=== PATIENT | female | born 1945 | race Caucasian/White ===

== ENCOUNTER 2016-08-10 13:04 | Inpatient (IN) | payer MEDICARE ==
[2016-08-10] MEDS ORDERED: SODIUM CHLORIDE 0.9% 500 ML IV STA (13:22)
[2016-08-10 13:36] LABS: Basophils % (A) 0 %; CH 29.6; CHCM 31.1; Eosinophils % (A) 0 %; HDW 3.13; Hypochromasia Moderate; Luc # (Auto) 0.04; Luc % (Auto) 1; Lymphocytes # (A) 0.4 k/uL (1.0-4.8); Lymphocytes % (A) 9 %; MCH 29.7 pg (25.0-35.0); MCHC 30.9 g/dL (31.0-37.0); MCV 96.2 fL (80.0-100.0); Monocytes # (A) 0.2 k/uL (0-1.0); Monocytes % (A) 4 %; Neutrophils # (A) 4.2 k/uL (1.3-7.7); Neutrophils % (A) 86 %; RBC 1.59 m/uL (3.80-5.40); RDW 15.9 % (11.5-15.5); WBC 4.9 k/uL (3.8-10.6); WBC (Perox) 5.07
[2016-08-10] MEDS ORDERED: ONDANSETRON 4 MG/2 ML VIAL IVP STA ×2 (13:45→16:15)
[2016-08-10 13:46] LABS: Calcium 6.8 mg/dL (8.4-10.2); Magnesium 1.7 mg/dL (1.6-2.3); Potassium 5.3 mmol/L (3.5-5.1); Total Bilirubin 0.4 mg/dL (0.2-1.3); Total Protein 5.9 g/dL (6.3-8.2)
[2016-08-10 13:50] LABS: HCT 15.3 % (34.0-46.0); HGB 4.7 gm/dL (11.4-16.0)
[2016-08-10] MEDS ORDERED: MORPHINE SULFATE 4 MG/ML SYRINGE IVP STA (13:52)
[2016-08-10 13:53] LABS: Appearance,Urine Clear (Clear); Bacteria,Urine Rare /hpf; Bilirubin,Urine Negative (Negative); Glucose,Urine (UA) Trace (Negative); Ketones,Urine Negative (Negative); Leukocyte Esterase,Urine Negative (Negative); Nitrite,Urine Negative (Negative); Particle Count 183; Protein,Urine 2+ (Negative); RBC,Urine <1 /hpf (0-5); Specific Gravity,Urine 1.005 (1.001-1.035); Squamous Epithelial Cell,Urine <1 /hpf (0-4); UA Billing (MACRO vs. MICRO) MICRO; Urobilinogen,Urine <2.0 mg/dL (<2.0); WBC,Urine 1 /hpf (0-5)
[2016-08-10 14:00] LABS: Phosphorous 8.8 mg/dL (2.5-4.5)
--- NOTE | 2016-08-10 14:25 | XR ---
EXAMINATION TYPE: XR KUB DATE OF EXAM: 08/10/2016 2:07 PM CLINICAL HISTORY: Abdominal pain and vomiting TECHNIQUE: 2 supine KUB images of the abdomen are obtained COMPARISON: None. FINDINGS: There is some paucity of bowel gas. Gas is seen in nondistended stomach. Gas is seen scatte red throughout nondistended small and large bowel loops including rectum. Some vascular calcification mid to lower abdomen and pelvis is present. There are few scattered pelvic phleboliths. Lung bases a re not included. Visualized osseous structures show moderate axial joint space loss in both hips. IMPRESSION: Overall nonspecific favor nonobstructive bowel gas pattern.
--- NOTE | 2016-08-10 15:18 | ED ---
Abdominal Pain HPI <Jose Lewis - Last Filed: 08/10/16 16:24> - General Source: patient, EMS, RN notes reviewed Mode of arrival: EMS Limitations: no limitations <Kole Evangelista - Last Filed: 08/10/16 16:49> - General Chief Complaint: Abdominal Pain Stated Complaint: NAUSEA, VOMITING Time Seen by Provider: 08/10/16 13:21 - History of Present Illness Initial Comments: This is a 70-year-old female presents emergency department via EMS for chief complaint of abdominal pain. Patient states she's been having a tearing feeling of her insides. She states this has been waxing and waning. She states that she is very sick and she has chronic renal failure. Patient states that she wants to be placed in hospice does not want any treatment. Patient states that she has discussed in the past with her primary care physician Dr. joe about water hospice. Patient states that she declined last time. Patient states at this point she cannot tolerate this anymore. Patient denies any chest pain or shortness of breath. Patient states she is very fatigued and does not feel well. Patient denies any dysuria or hematuria. (Kole Evangelista) - Related Data Home Medications Medication Instructions Recorded Confirmed Levothyroxine Sodium [Synthroid] 50 mcg PO DAILY 06/11/15 08/10/16 ALPRAZolam [Xanax] 1 mg PO DAILY PRN 08/10/16 08/10/16 Previous Rx's Medication Instructions Recorded Ondansetron Odt [Zofran Odt] 4 mg PO Q8HR PRN #10 tab 08/10/16 Promethazine [Phenergan] 25 mg PO Q6HR #10 tablet 08/10/16 oxyCODONE-APAP 5-325MG [Percocet 1 tab PO Q6HR PRN #10 tab 08/10/16 5-325 mg] Allergies Allergy/AdvReac Type Severity Reaction Status Date / Time lithium [[place]] Allergy KIDNEY Verified 08/10/16 13:17 FAILURE paroxetine HCl [From Paxil] Allergy Rash/Hives Verified 08/10/16 13:17 Review of Systems ROS Other: All systems not noted in ROS Statement are negative. <Jose Lewis - Last Filed: 08/10/16 16:24> ROS Other: All systems not noted in ROS Statement are negative. <Kole Evangelista - Last Filed: 08/10/16 16:49> ROS Statement: Those systems with pertinent positive or pertinent negative responses have been documented in the HPI. Past Medical History Past Medical History: Hypertension, Renal Disease, Thyroid Disorder Additional Past Medical History / Comment(s): "low blood sugar problems" History of Any Multi-Drug Resistant Organisms: None Reported Additional Past Surgical History / Comment(s): abdominal cyst removed Past Anesthesia/Blood Transfusion Reactions: No Reported Reaction Past Psychological History: No Psychological Hx Reported Smoking Status: Former smoker Past Alcohol Use History: None Reported Past Drug Use History: None Reported - Past Family History Mother Family Medical History: Asthma Additional Family Medical History / Comment(s): cholecystectomy Father Family Medical History: Cancer Additional Family Medical History / Comment(s): colon CA <Kole Evangelista - Last Filed: 08/10/16 16:49> General Exam Limitations: no limitations General appearance: alert, in no apparent distress Head exam: Present: atraumatic, normocephalic, normal inspection Eye exam: Present: normal appearance, PERRL, EOMI. Absent: scleral icterus, conjunctival injection, periorbital swelling Neck exam: Present: normal inspection. Absent: tenderness, meningismus, lymphadenopathy Respiratory exam: Present: normal lung sounds bilaterally. Absent: respiratory distress, wheezes, rales, rhonchi, stridor Cardiovascular Exam: Present: regular rate, normal rhythm, normal heart sounds. Absent: systolic murmur, diastolic murmur, rubs, gallop, clicks GI/Abdominal exam: Present: soft, tenderness (Moderate diffuse abdominal tenderness), normal bowel sounds. Absent: distended, guarding, rebound, rigid Back exam: Absent: CVA tenderness (R), CVA tenderness (L) Neurological exam: Present: alert, oriented X3, CN II-XII intact Skin exam: Present: warm, dry, intact, normal color. Absent: rash <Kole Evangelista - Last Filed: 08/10/16 16:49> Course <Jose Lewis - Last Filed: 08/10/16 16:24> <Kole Evangelista - Last Filed: 08/10/16 16:49> Vital Signs 08/10/16 13:14 Temperature 97.0 F L Pulse Rate 90 Respiratory 16 Rate Blood Pressure 195/86 O2 Sat by Pulse 98 Oximetry - Reevaluation(s) Reevaluation #1: 08/10/16 15:17 Patient was updated on lab results as I received him including critical hemoglobin and creatinine. Patient refuses blood transfusion or dialysis. Patient states she does not want any treatment. Patient is requesting hospice. I did contact social work, Umesh recommended that we contact [facility] though the patient is requesting blood at this time and will proceed with bladder hospice. She does state that we needed physician order and we are attempting to contact Dr. Madrigal Patient given pain relief emergency Department before the morphine. We will attempt to contact [facility] hosp[facility] ourselves while waiting for physician order. (Kole Evangelista) Medical Decision Making - Lab Data Result diagrams: 08/10/16 13:20 08/10/16 13:20 <Jose Lewis - Last Filed: 08/10/16 16:24> - Lab Data Result diagrams: 08/10/16 13:20 08/10/16 13:20 <Kole Evangelista - Last Filed: 08/10/16 16:49> - Medical Decision Making Patient reevaluated by myself, Dr. Lewis. Patient does not want any further medical care and only is seeking pain relief. Patient is requesting to be put on hospice. Patient has previously been on hospice. [facility] was contacted per patient request. Dr. Madrigal was also notified who will call [place] at [phone] (Jose Lewis) I did discuss with [facility] that Dr. Madrigal did contact him have orders for hospice care. Nurse will follow-up in the morning. Patient will not be seen by them tonight and will require pain control. I will write her pain management, antinausea medication at home for tonight and she'll be evaluated at home tomorrow. Patient and family agreed to plan. Patient again declines all medical treatment at this time. (Kole Evangelista) - Lab Data Lab Results 08/10/16 08/10/16 08/10/16 Range/Units 13:20 13:20 13:20 WBC 4.9 (3.8-10.6) k/uL RBC 1.59 L (3.80-5.40) m/uL Hgb 4.7 L* (11.4-16.0) gm/dL Hct 15.3 L* (34.0-46.0) % MCV 96.2 (80.0-100.0) fL MCH 29.7 (25.0-35.0) pg MCHC 30.9 L (31.0-37.0) g/dL RDW 15.9 H (11.5-15.5) % Plt Count 166 (150-450) k/uL Neutrophils % 86 % Lymphocytes % 9 % Monocytes % 4 % Eosinophils % 0 % Basophils % 0 % Neutrophils # 4.2 (1.3-7.7) k/uL Lymphocytes # 0.4 L (1.0-4.8) k/uL Monocytes # 0.2 (0-1.0) k/uL Eosinophils # 0.0 (0-0.7) k/uL Basophils # 0.0 (0-0.2) k/uL Hypochromasia Moderate Sodium 140 (137-145) mmol/L Potassium 5.3 H (3.5-5.1) mmol/L Chloride 113 H (98-107) mmol/L Carbon Dioxide 8 L* (22-30) mmol/L Anion Gap 19 mmol/L BUN 168 H* (7-17) mg/dL Creatinine 13.24 H* (0.52-1.04) mg/dL Est GFR (MDRD) Af Amer 3 (>60 ml/min/1.73 sqM) Est GFR (MDRD) Non-Af 3 (>60 ml/min/1.73 sqM) Glucose 116 H (74-99) mg/dL Calcium 6.8 L (8.4-10.2) mg/dL Phosphorus 8.8 H* (2.5-4.5) mg/dL Magnesium 1.7 (1.6-2.3) mg/dL Total Bilirubin 0.4 (0.2-1.3) mg/dL AST 18 (14-36) U/L ALT 43 (9-52) U/L Alkaline Phosphatase 146 H (38-126) U/L Total Protein 5.9 L (6.3-8.2) g/dL Albumin 3.6 (3.5-5.0) g/dL Amylase 101 (30-110) U/L Lipase 508 H (23-300) U/L Urine Color Urine Appearance (Clear) Urine pH (5.0-8.0) Ur Specific [place] (1.001-1.035) Urine Protein (Negative) Urine Glucose (UA) (Negative) Urine Ketones (Negative) Urine Blood (Negative) Urine Nitrite (Negative) Urine Bilirubin (Negative) Urine Urobilinogen (<2.0) mg/dL Ur Leukocyte Esterase (Negative) Urine RBC (0-5) /hpf Urine WBC (0-5) /hpf Ur Squamous Epith Cells (0-4) /hpf Urine Bacteria (None) /hpf Blood Type A Positive Blood Type Recheck No Antibody Screen NEGATIVE Spec Expiration Date 08/13/2016 - 231908/10/16 Range/Units 13:35 WBC (3.8-10.6) k/uL RBC (3.80-5.40) m/uL Hgb (11.4-16.0) gm/dL Hct (34.0-46.0) % MCV (80.0-100.0) fL MCH (25.0-35.0) pg MCHC (31.0-37.0) g/dL RDW (11.5-15.5) % Plt Count (150-450) k/uL Neutrophils % % Lymphocytes % % Monocytes % % Eosinophils % % Basophils % % Neutrophils # (1.3-7.7) k/uL Lymphocytes # (1.0-4.8) k/uL Monocytes # (0-1.0) k/uL Eosinophils # (0-0.7) k/uL Basophils # (0-0.2) k/uL Hypochromasia Sodium (137-145) mmol/L Potassium (3.5-5.1) mmol/L Chloride (98-107) mmol/L Carbon Dioxide (22-30) mmol/L Anion Gap mmol/L BUN (7-17) mg/dL Creatinine (0.52-1.04) mg/dL Est GFR (MDRD) Af Amer (>60 ml/min/1.73 sqM) Est GFR (MDRD) Non-Af (>60 ml/min/1.73 sqM) Glucose (74-99) mg/dL Calcium (8.4-10.2) mg/dL Phosphorus (2.5-4.5) mg/dL Magnesium (1.6-2.3) mg/dL Total Bilirubin (0.2-1.3) mg/dL AST (14-36) U/L ALT (9-52) U/L Alkaline Phosphatase (38-126) U/L Total Protein (6.3-8.2) g/dL Albumin (3.5-5.0) g/dL Amylase (30-110) U/L Lipase (23-300) U/L Urine Color Colorless Urine Appearance Clear (Clear) Urine pH 6.0 (5.0-8.0) Ur Specific [place] 1.005 (1.001-1.035) Urine Protein 2+ H (Negative) Urine Glucose (UA) Trace H (Negative) Urine Ketones Negative (Negative) Urine Blood Small H (Negative) Urine Nitrite Negative (Negative) Urine Bilirubin Negative (Negative) Urine Urobilinogen <2.0 (<2.0) mg/dL Ur Leukocyte Esterase Negative (Negative) Urine RBC <1 (0-5) /hpf Urine WBC 1 (0-5) /hpf Ur Squamous Epith Cells <1 (0-4) /hpf Urine Bacteria Rare H (None) /hpf Blood Type Blood Type Recheck Antibody Screen Spec Expiration Date Disposition <Jose Lewis - Last Filed: 08/10/16 16:24> Time of Disposition: 16:49 <Kole Evangelista - Last Filed: 08/10/16 16:49> Clinical Impression: Renal failure, Anemia, Serum phosphate elevated, Hospice care Disposition: HOME SELF-CARE Condition: Critical Additional Instructions: [facility] will follow up with you at home.Please return to the Emergency Department if symptoms worsen or any other concerns. Prescriptions: Ondansetron Odt [Zofran Odt] 4 mg PO Q8HR PRN #10 tab PRN Reason: Nausea Promethazine [Phenergan] 25 mg PO Q6HR #10 tablet oxyCODONE-APAP 5-325MG [Percocet 5-325 mg] 1 tab PO Q6HR PRN #10 tab PRN Reason: Pain
[2016-08-10] MEDS ORDERED: HYDROmorphone 1 MG/ML 1 ML SYRINGE IVP STA (15:33)
[2016-08-10] MEDS ORDERED: METOCLOPRAMIDE 5 MG/ML 2 ML VIAL IVP STA (16:44)
[2016-08-10] MEDS ORDERED: PROMETHAZINE INJ 25 MG in SODIUM CHLORIDE 0.9% 50 ML IVPB STA (17:24)
--- NOTE | 2016-08-10 18:39 | ED ---
Medical Decision Making - Medical Decision Making Family was concerned about taking patient home and her ability to tolerate oral medications. Case was discussed in detail with Dr. Boothe. He does not feel patient meets admission criteria however if hospice will approve respite admission he will agree to that. Hospice is being contacted and trying to figure out a plan. - Lab Data Result diagrams: 08/10/16 13:20 08/10/16 13:20 Lab Results 08/10/16 08/10/16 08/10/16 Range/Units 13:20 13:20 13:20 WBC 4.9 (3.8-10.6) k/uL RBC 1.59 L (3.80-5.40) m/uL Hgb 4.7 L* (11.4-16.0) gm/dL Hct 15.3 L* (34.0-46.0) % MCV 96.2 (80.0-100.0) fL MCH 29.7 (25.0-35.0) pg MCHC 30.9 L (31.0-37.0) g/dL RDW 15.9 H (11.5-15.5) % Plt Count 166 (150-450) k/uL Neutrophils % 86 % Lymphocytes % 9 % Monocytes % 4 % Eosinophils % 0 % Basophils % 0 % Neutrophils # 4.2 (1.3-7.7) k/uL Lymphocytes # 0.4 L (1.0-4.8) k/uL Monocytes # 0.2 (0-1.0) k/uL Eosinophils # 0.0 (0-0.7) k/uL Basophils # 0.0 (0-0.2) k/uL Hypochromasia Moderate Sodium 140 (137-145) mmol/L Potassium 5.3 H (3.5-5.1) mmol/L Chloride 113 H (98-107) mmol/L Carbon Dioxide 8 L* (22-30) mmol/L Anion Gap 19 mmol/L BUN 168 H* (7-17) mg/dL Creatinine 13.24 H* (0.52-1.04) mg/dL Est GFR (MDRD) Af Amer 3 (>60 ml/min/1.73 sqM) Est GFR (MDRD) Non-Af 3 (>60 ml/min/1.73 sqM) Glucose 116 H (74-99) mg/dL Calcium 6.8 L (8.4-10.2) mg/dL Phosphorus 8.8 H* (2.5-4.5) mg/dL Magnesium 1.7 (1.6-2.3) mg/dL Total Bilirubin 0.4 (0.2-1.3) mg/dL AST 18 (14-36) U/L ALT 43 (9-52) U/L Alkaline Phosphatase 146 H (38-126) U/L Total Protein 5.9 L (6.3-8.2) g/dL Albumin 3.6 (3.5-5.0) g/dL Amylase 101 (30-110) U/L Lipase 508 H (23-300) U/L Urine Color Urine Appearance (Clear) Urine pH (5.0-8.0) Ur Specific [place] (1.001-1.035) Urine Protein (Negative) Urine Glucose (UA) (Negative) Urine Ketones (Negative) Urine Blood (Negative) Urine Nitrite (Negative) Urine Bilirubin (Negative) Urine Urobilinogen (<2.0) mg/dL Ur Leukocyte Esterase (Negative) Urine RBC (0-5) /hpf Urine WBC (0-5) /hpf Ur Squamous Epith Cells (0-4) /hpf Urine Bacteria (None) /hpf Blood Type A Positive Blood Type Recheck No Antibody Screen NEGATIVE Spec Expiration Date 08/13/2016 - 231908/10/16 Range/Units 13:35 WBC (3.8-10.6) k/uL RBC (3.80-5.40) m/uL Hgb (11.4-16.0) gm/dL Hct (34.0-46.0) % MCV (80.0-100.0) fL MCH (25.0-35.0) pg MCHC (31.0-37.0) g/dL RDW (11.5-15.5) % Plt Count (150-450) k/uL Neutrophils % % Lymphocytes % % Monocytes % % Eosinophils % % Basophils % % Neutrophils # (1.3-7.7) k/uL Lymphocytes # (1.0-4.8) k/uL Monocytes # (0-1.0) k/uL Eosinophils # (0-0.7) k/uL Basophils # (0-0.2) k/uL Hypochromasia Sodium (137-145) mmol/L Potassium (3.5-5.1) mmol/L Chloride (98-107) mmol/L Carbon Dioxide (22-30) mmol/L Anion Gap mmol/L BUN (7-17) mg/dL Creatinine (0.52-1.04) mg/dL Est GFR (MDRD) Af Amer (>60 ml/min/1.73 sqM) Est GFR (MDRD) Non-Af (>60 ml/min/1.73 sqM) Glucose (74-99) mg/dL Calcium (8.4-10.2) mg/dL Phosphorus (2.5-4.5) mg/dL Magnesium (1.6-2.3) mg/dL Total Bilirubin (0.2-1.3) mg/dL AST (14-36) U/L ALT (9-52) U/L Alkaline Phosphatase (38-126) U/L Total Protein (6.3-8.2) g/dL Albumin (3.5-5.0) g/dL Amylase (30-110) U/L Lipase (23-300) U/L Urine Color Colorless Urine Appearance Clear (Clear) Urine pH 6.0 (5.0-8.0) Ur Specific [place] 1.005 (1.001-1.035) Urine Protein 2+ H (Negative) Urine Glucose (UA) Trace H (Negative) Urine Ketones Negative (Negative) Urine Blood Small H (Negative) Urine Nitrite Negative (Negative) Urine Bilirubin Negative (Negative) Urine Urobilinogen <2.0 (<2.0) mg/dL Ur Leukocyte Esterase Negative (Negative) Urine RBC <1 (0-5) /hpf Urine WBC 1 (0-5) /hpf Ur Squamous Epith Cells <1 (0-4) /hpf Urine Bacteria Rare H (None) /hpf Blood Type Blood Type Recheck Antibody Screen Spec Expiration Date Disposition Clinical Impression: Renal failure, Anemia, Serum phosphate elevated, Hospice care Disposition: HOME SELF-CARE Condition: Critical Additional Instructions: [facility] hospice will follow up with you at home.Please return to the Emergency Department if symptoms worsen or any other concerns. Prescriptions: Ondansetron Odt [Zofran Odt] 4 mg PO Q8HR PRN #10 tab PRN Reason: Nausea Promethazine [Phenergan] 25 mg PO Q6HR #10 tablet oxyCODONE-APAP 5-325MG [Percocet 5-325 mg] 1 tab PO Q6HR PRN #10 tab PRN Reason: Pain Referrals: Allan Madrigal MD [Primary Care Provider] - 1-2 days
--- NOTE | 2016-08-10 21:23 | ED ---
Medical Decision Making - Medical Decision Making The patient has been improved by hospice for inpatient respite care. I did discuss the case with the hospice nurse. The patient will be admitted to Dr. Boothe. - Lab Data Result diagrams: 08/10/16 13:20 08/10/16 13:20 Lab Results 08/10/16 08/10/16 08/10/16 Range/Units 13:20 13:20 13:20 WBC 4.9 (3.8-10.6) k/uL RBC 1.59 L (3.80-5.40) m/uL Hgb 4.7 L* (11.4-16.0) gm/dL Hct 15.3 L* (34.0-46.0) % MCV 96.2 (80.0-100.0) fL MCH 29.7 (25.0-35.0) pg MCHC 30.9 L (31.0-37.0) g/dL RDW 15.9 H (11.5-15.5) % Plt Count 166 (150-450) k/uL Neutrophils % 86 % Lymphocytes % 9 % Monocytes % 4 % Eosinophils % 0 % Basophils % 0 % Neutrophils # 4.2 (1.3-7.7) k/uL Lymphocytes # 0.4 L (1.0-4.8) k/uL Monocytes # 0.2 (0-1.0) k/uL Eosinophils # 0.0 (0-0.7) k/uL Basophils # 0.0 (0-0.2) k/uL Hypochromasia Moderate Sodium 140 (137-145) mmol/L Potassium 5.3 H (3.5-5.1) mmol/L Chloride 113 H (98-107) mmol/L Carbon Dioxide 8 L* (22-30) mmol/L Anion Gap 19 mmol/L BUN 168 H* (7-17) mg/dL Creatinine 13.24 H* (0.52-1.04) mg/dL Est GFR (MDRD) Af Amer 3 (>60 ml/min/1.73 sqM) Est GFR (MDRD) Non-Af 3 (>60 ml/min/1.73 sqM) Glucose 116 H (74-99) mg/dL Calcium 6.8 L (8.4-10.2) mg/dL Phosphorus 8.8 H* (2.5-4.5) mg/dL Magnesium 1.7 (1.6-2.3) mg/dL Total Bilirubin 0.4 (0.2-1.3) mg/dL AST 18 (14-36) U/L ALT 43 (9-52) U/L Alkaline Phosphatase 146 H (38-126) U/L Total Protein 5.9 L (6.3-8.2) g/dL Albumin 3.6 (3.5-5.0) g/dL Amylase 101 (30-110) U/L Lipase 508 H (23-300) U/L Urine Color Urine Appearance (Clear) Urine pH (5.0-8.0) Ur Specific [place] (1.001-1.035) Urine Protein (Negative) Urine Glucose (UA) (Negative) Urine Ketones (Negative) Urine Blood (Negative) Urine Nitrite (Negative) Urine Bilirubin (Negative) Urine Urobilinogen (<2.0) mg/dL Ur Leukocyte Esterase (Negative) Urine RBC (0-5) /hpf Urine WBC (0-5) /hpf Ur Squamous Epith Cells (0-4) /hpf Urine Bacteria (None) /hpf Blood Type A Positive Blood Type Recheck No Antibody Screen NEGATIVE Spec Expiration Date 08/13/2016 - 231908/10/16 Range/Units 13:35 WBC (3.8-10.6) k/uL RBC (3.80-5.40) m/uL Hgb (11.4-16.0) gm/dL Hct (34.0-46.0) % MCV (80.0-100.0) fL MCH (25.0-35.0) pg MCHC (31.0-37.0) g/dL RDW (11.5-15.5) % Plt Count (150-450) k/uL Neutrophils % % Lymphocytes % % Monocytes % % Eosinophils % % Basophils % % Neutrophils # (1.3-7.7) k/uL Lymphocytes # (1.0-4.8) k/uL Monocytes # (0-1.0) k/uL Eosinophils # (0-0.7) k/uL Basophils # (0-0.2) k/uL Hypochromasia Sodium (137-145) mmol/L Potassium (3.5-5.1) mmol/L Chloride (98-107) mmol/L Carbon Dioxide (22-30) mmol/L Anion Gap mmol/L BUN (7-17) mg/dL Creatinine (0.52-1.04) mg/dL Est GFR (MDRD) Af Amer (>60 ml/min/1.73 sqM) Est GFR (MDRD) Non-Af (>60 ml/min/1.73 sqM) Glucose (74-99) mg/dL Calcium (8.4-10.2) mg/dL Phosphorus (2.5-4.5) mg/dL Magnesium (1.6-2.3) mg/dL Total Bilirubin (0.2-1.3) mg/dL AST (14-36) U/L ALT (9-52) U/L Alkaline Phosphatase (38-126) U/L Total Protein (6.3-8.2) g/dL Albumin (3.5-5.0) g/dL Amylase (30-110) U/L Lipase (23-300) U/L Urine Color Colorless Urine Appearance Clear (Clear) Urine pH 6.0 (5.0-8.0) Ur Specific [place] 1.005 (1.001-1.035) Urine Protein 2+ H (Negative) Urine Glucose (UA) Trace H (Negative) Urine Ketones Negative (Negative) Urine Blood Small H (Negative) Urine Nitrite Negative (Negative) Urine Bilirubin Negative (Negative) Urine Urobilinogen <2.0 (<2.0) mg/dL Ur Leukocyte Esterase Negative (Negative) Urine RBC <1 (0-5) /hpf Urine WBC 1 (0-5) /hpf Ur Squamous Epith Cells <1 (0-4) /hpf Urine Bacteria Rare H (None) /hpf Blood Type Blood Type Recheck Antibody Screen Spec Expiration Date Disposition Clinical Impression: Renal failure, Anemia, Serum phosphate elevated, Hospice care Disposition: HOME SELF-CARE Condition: Critical Additional Instructions: [facility] hospice will follow up with you at home.Please return to the Emergency Department if symptoms worsen or any other concerns. Prescriptions: Ondansetron Odt [Zofran Odt] 4 mg PO Q8HR PRN #10 tab PRN Reason: Nausea Promethazine [Phenergan] 25 mg PO Q6HR #10 tablet oxyCODONE-APAP 5-325MG [Percocet 5-325 mg] 1 tab PO Q6HR PRN #10 tab PRN Reason: Pain Referrals: Allan Madrigal MD [Primary Care Provider] - 1-2 days
[2016-08-10] MEDS ORDERED: NALOXONE 0.4 MG/ML 1 ML VIAL IV PRN (21:24)
[2016-08-10 22:06] VITALS: BP 168/87; PULSE 111; RESP 20; TEMP 98
== END 2016-08-10 22:17 | disposition hospice, inpatient (51) | DRG 682 ==
LOC: EC 13:04 → 3SUR 21:25
PROVIDERS: ADMIT Internal Medicine Geriatric Medicine; ATTEND Internal Medicine Geriatric Medicine
DX: I12.0 Hypertensive chronic kidney disease with stage 5 chronic kidney disease or end stage renal disease (principal); N18.6 End stage renal disease; D62 Acute posthemorrhagic anemia; K92.2 Gastrointestinal hemorrhage, unspecified; Z51.5 Encounter for palliative care; Z66 Do not resuscitate; R11.2 Nausea with vomiting, unspecified; D63.8 Anemia in other chronic diseases classified elsewhere; R60.9 Edema, unspecified; T43.595S Adverse effect of other antipsychotics and neuroleptics, sequela; H53.8 Other visual disturbances; R53.1 Weakness; L29.8 Other pruritus; R04.0 Epistaxis; R10.9 Unspecified abdominal pain; E03.9 Hypothyroidism, unspecified; K59.00 Constipation, unspecified; F32.9 Major depressive disorder, single episode, unspecified; I25.2 Old myocardial infarction; Z80.0 Family history of malignant neoplasm of digestive organs; Z82.5 Family history of asthma and other chronic lower respiratory diseases; Z87.891 Personal history of nicotine dependence; Z88.8 Allergy status to other drugs, medicaments and biological substances; Z90.49 Acquired absence of other specified parts of digestive tract; Z79.891 Long term (current) use of opiate analgesic; Z79.899 Other long term (current) drug therapy; Z80.7 Family history of other malignant neoplasms of lymphoid, hematopoietic and related tissues; Z82.49 Family history of ischemic heart disease and other diseases of the circulatory system; Z83.79 Family history of other diseases of the digestive system
CPT/HCPCS: 36415; 74000; 80053; 81001; 82150; 83690; 83735; 84100; 85025; 86850; 86900; 86901; 96374; 96375; 96376; 99285

== ENCOUNTER 2016-08-10 21:25 | Inpatient (IN) | payer MEDICAID, OTHER ==
[2016-08-10] MEDS ORDERED: MORPHINE SULFATE 2 MG/ML SYRINGE IVP PRN (23:43)
[2016-08-10] MEDS ORDERED: PROMETHAZINE INJ 25 MG in SODIUM CHLORIDE 0.9% 50 ML IVPB PRN (23:57)
[2016-08-11] MEDS ORDERED: PROMETHAZINE INJ 25 MG in SODIUM CHLORIDE 0.9% 50 ML IVPB PRN (00:06)
[2016-08-11] MEDS ORDERED: ONDANSETRON 4 MG/2 ML VIAL IVP PRN ×2 (01:33→08:41)
[2016-08-11 02:46] VITALS: BMI 21.3
[2016-08-11 02:58] VITALS: RESP 16
[2016-08-11 08:47] VITALS: BP 193/82; PULSE 97; TEMP 98.6
--- NOTE | 2016-08-11 09:13 | P.HPIM ---
History of Present Illness H&P Date: 08/11/16 Chief Complaint: Intractable nausea and vomiting HISTORY AND PHYSICAL AND DISCHARGE SUMMARY: This is a 70-year-old female patient of Dr. Madrigal with a past medical history of hypertension, end-stage renal disease, hypothyroidism, depression. Patient states that she first had renal damage due to lithium which she was on many years ago and in 2008 she was seen by a electric cell tender in [place] that gave her 6 months to one and half years to live. Patient has been in hospice care before but was stopped or patient discontinued. Patient had recent contact with [facility] about one month ago as she was referred by her primary care physician but she decided against that. She states she has been doing okay and actually had some interest in cooking lately. Several days ago she went for walk in the [facility] and her friend took her grocery shopping in [place]. She was feeling extremely weak after shopping and thought it was related to not eating very much. She states she put away some of her groceries and then she got into bed. She tried to eat but she started vomiting and could not stop. Patient states she tried to find the phone number for hospice and was not able to find in her home. Her friend wanted to bring her into the hospital but he was unable to do so and EMS was called. She was brought into [facility] emergency center for evaluation where she was found to have hemoglobin of 4.7, BUN 168, creatinine 13.2, potassium 5.3, alkaline phosphatase 146, lipase 508. Urinalysis was clear, nitrite and leukoesterase negative. There was a small amount of blood. Patient does state that she has had bloody noses recently and her stools have been dark and she thought it was related to the bloody nose. She had seen Dr. Curran recently but she cannot remember if it was a couple weeks ago or longer for anemia but there was no plan for transfusion. She states she last saw Dr. Madrigal one month ago and he did blood work and she received a call back that she was to go to the hospital because of the results of the blood work but she did not at that time. She states the weakness came on very quickly and has been very severe as well as the vomiting. She also states that she did not make any urine for greater than 24 hours and she has had a small amount of edema to the lower extremities. Her last bowel movement was normal but she does have recent problems alternating between loose and constipation. She also complains of itchy skin. She was admitted to the [facility] floor and started on IV morphine and Zofran. Patient states she was able to eat a few Fritos during the night and feels that she could eat breakfast this morning. She did have urine output during the middle the night. Review of Systems All systems: negative Constitutional: Reports anorexia, Reports fatigue, Reports poor appetite, Reports weakness, Denies chills, Denies fever Eyes: bilateral blurred vision, denies pain Ears, nose, mouth and throat: Denies headache, Denies sore throat Cardiovascular: Reports leg edema, Denies chest pain, Denies shortness of breath Respiratory: Denies cough Gastrointestinal: Denies abdominal pain, Denies diarrhea, Denies nausea, Denies vomiting Genitourinary: Denies dysuria, Denies hematuria Musculoskeletal: Denies myalgias Integumentary: Denies pruritus, Denies rash Neurological: Denies numbness, Denies weakness Psychiatric: Denies anxiety, Denies depression Endocrine: Denies fatigue, Denies weight change Past Medical History Past Medical History: Hypertension, Myocardial Infarction ([place]), Renal Disease, Thyroid Disorder Additional Past Medical History / Comment(s): "low blood sugar problems" Last Myocardial Infarction Date:: 04/2015 History of Any Multi-Drug Resistant Organisms: None Reported Additional Past Surgical History / Comment(s): abdominal cyst removed Past Anesthesia/Blood Transfusion Reactions: No Reported Reaction Past Psychological History: Depression Smoking Status: Former smoker Past Alcohol Use History: None Reported Additional Past Alcohol Use History / Comment(s): Patient was a smoker for only 6 years and quit in 1971. No marijuana, medical marijuana or street drug use. Occasional alcohol use. Patient currently lives at home alone. She is after 43 years. She has a friend Gene that helps with shopping and driving and taking her to doctor's appointments. Patient has not driven and 10 months. She does not have any children. She has friends in [place] and a cousin in [place]. He has one brother and [place] that she is not close with. Past Drug Use History: None Reported - Past Family History Mother Family Medical History: Asthma Additional Family Medical History / Comment(s): Mother at age 80 from a ruptured diverticula and sepsis. Father Family Medical History: Cancer Additional Family Medical History / Comment(s): Mother at age 71 from colon cancer. Brother(s) Additional Family Medical History / Comment(s): Patient has 2 brothers. She has 1 brother that is alive with no major medical problems that she is aware of. Patient has 1 brother that at age 52 with history of Hodgkin's disease and status post heart transplant. Medications and Allergies Home Medications Medication Instructions Recorded Confirmed Type Levothyroxine Sodium [Synthroid] 50 mcg PO DAILY 06/11/15 08/10/16 History ALPRAZolam [Xanax] 1 mg PO DAILY PRN 08/10/16 08/10/16 History Allergies Allergy/AdvReac Type Severity Reaction Status Date / Time lithium [[place]] Allergy KIDNEY Verified 08/10/16 13:17 FAILURE paroxetine HCl [From Paxil] Allergy Rash/Hives Verified 08/10/16 13:17 Physical Exam Vitals: Vital Signs Temp Pulse Resp BP Pulse Ox 08/11/16 02:57 98.7 F 105 H 16 197/92 93 L Intake and Output 08/10/16 08/11/16 08/11/16 22:59 06:59 14:59 Output Total 1 Balance -1 Output: Urine 1 Other: Weight 54.683 kg 54.683 kg Gen: This is a thin 70-year-old female. She is found in bed and appears to be in no acute distress. HEENT: Head is atraumatic, normocephalic. Pupils equal, round. Sclerae is anicteric. Conjunctiva pale. Mucous members of the mouth are dry. NECK: Supple. No JVD. No lymphadenopathy. No thyromegaly. LUNGS: Clear to auscultation. No wheezes or rhonchi. No intercostal retractions. HEART: Regular rate and rhythm. No murmur. ABDOMEN: Soft. Bowel sounds are present. No masses. Generalized tenderness. EXTREMITIES: Trace bilateral pedal edema. No calf tenderness. NEUROLOGICAL: Patient is awake, alert and oriented x3. Cranial nerves 2 through 12 are grossly intact. Thrombosis Risk Factor Assmnt - DVT/VTE Prophylaxis DVT/VTE Prophylaxis: Contraindicated - See note - Choose All That Apply Any of the Below Risk Factors Present?: No Each Risk Factor Represents 2 Points: Age 61-74 years Thrombosis Risk Factor Assessment Total Risk Factor Score: 2 Thrombosis Risk Factor Assessment Level: Low Risk Assessment and Plan Plan: 1. End-stage renal disease. 2. Anemia of chronic disease with possible acute blood loss due to epistaxis or GI bleed. 3. Hypertension. 4. Hypothyroidism. 5. Intractable nausea and vomiting. 6. Pruritus due to end-stage renal disease. Plan: Continue comfort care only with no aggressive treatment. Continue morphine for pain control. Continue Zofran for nausea. Patient will be admitted to the hospital for a minimum of 1 night stay under hospice GIP. discharge plan: [facility] home Discharge medications: Levothyroxine Sodium [Synthroid] 50 mcg PO DAILY 06/11/15 [History] ALPRAZolam [Xanax] 1 mg PO DAILY PRN 08/10/16 [History] Ondansetron Odt [Zofran ODT] 4 mg PO Q8HR PRN #10 tab 08/10/16 [Rx] Promethazine [Phenergan] 25 mg PO Q6HR #10 tablet 08/10/16 [Rx] Atropine Ophth Soln 1% 5Ml [Isopto Atropine 1% 5Ml] 2 drops PO Q4HR PRN #1 bottle 08/11/16 [Rx] LORazepam ORAL CONC [Ativan Intensol] 2 mg PO Q4H PRN #30 ml 08/11/16 [Rx] MORPHINE ORAL SOLN 20mg/mL [Roxanol Oral Soln Conc 20MG/ML] 5 mg PO Q4H PRN #30 ml 08/11/16 [Rx] oxyCODONE-APAP 5-325MG [Percocet 5-325 mg] 1 tab PO Q6HR PRN #60 tab 08/11/16 [ Rx] impression and plan of care have been directed as dictated by the signing physician. Alyce Guajardo nurse practitioner acting as scribe for signing physician. Cc: Dr. Allan Madrigal Time with Patient: Greater than 30
== END 2016-08-11 16:15 | disposition hospice, inpatient (51) | DRG 682 ==
LOC: 3SUR 21:25
PROVIDERS: ADMIT Internal Medicine Geriatric Medicine; ATTEND Internal Medicine Geriatric Medicine
DX: I12.0 Hypertensive chronic kidney disease with stage 5 chronic kidney disease or end stage renal disease (principal); N18.6 End stage renal disease; D62 Acute posthemorrhagic anemia; F32.9 Major depressive disorder, single episode, unspecified; E03.9 Hypothyroidism, unspecified; D63.8 Anemia in other chronic diseases classified elsewhere; I25.2 Old myocardial infarction; L29.9 Pruritus, unspecified; R11.2 Nausea with vomiting, unspecified; Z51.5 Encounter for palliative care; Z87.891 Personal history of nicotine dependence; Z79.899 Other long term (current) drug therapy; Z88.8 Allergy status to other drugs, medicaments and biological substances